=== PATIENT | male | born 1945 | race Two or more races ===

== ENCOUNTER 2016-11-19 03:56 | Inpatient (IN) | payer MEDICARE, OTHER ==
[~2016-11-19] VITALS: Ht 152.4 cm; Wt 76.2 kg
[2016-11-19 04:31] VITALS: BP 153/73
[2016-11-19 04:38] VITALS: BP 153/73
[2016-11-19] MEDS ORDERED: DEXTROSE 50%-WATER 50 ML DISP.SYRIN IV PRN (05:00)
[2016-11-19] MEDS ORDERED: ACETAMINOPHEN 325 MG TABLET PO PRN (05:00)
[2016-11-19] MEDS ORDERED: ONDANSETRON HCL/PF 4 MG/2 ML VIAL IVP PRN (05:00)
[2016-11-19] MEDS ORDERED: HYDROCODONE/APAP 5/325MG 1 EACH TABLET PO PRN (05:00)
[2016-11-19] MEDS ORDERED: Z GUARD REMEDY 2 OZ OINT TP PRN (05:00)
[2016-11-19] MEDS ORDERED: MAGNESIUM HYDROXIDE 30 ML UDC PO PRN (05:00)
[2016-11-19] MEDS ORDERED: ZOLPIDEM TARTRATE 5 MG TABLET PO PRN (05:00)
[2016-11-19] MEDS ORDERED: *INSULIN REGULAR(HUMULIN R)HUM 100 UNIT/ML VIAL SQ PRN (05:00)
[2016-11-19] MEDS ORDERED: MAG HYDROX/AL HYDROX/SIMETH 30 ML UDC PO PRN (05:00)
[2016-11-19] MEDS: BLOOD SUGAR DIAGNOSTIC 1 EACH STRIP VI SCH ×4 (06:07→21:32)
[2016-11-19] MEDS: INSULIN REGULAR, HUMAN 100 UNIT/ML 3 ML VIAL SQ PRN ×3 (06:12→18:32)
[2016-11-19 08:00] VITALS: BP 136/71
[2016-11-19] MEDS: PANTOPRAZOLE 40 MG TABLET.DR PO SCH (08:58)
[2016-11-19 09:02] LABS: BASOPHILS % (AUTO) 0.2 % (0.0-2.0); DIFF TOTAL % 100 %; EOSINOPHILS % (AUTO) 0.5 % (0.0-6.0); HEMATOCRIT 43 % (39-51); HEMOGLOBIN 14.6 g/dL (13.5-17.5); LYMPHOCYTES # (AUTO) 2.6 /CMM (0.8-4.8); LYMPHOCYTES % (AUTO) 30.5 % (20.0-44.0); MEAN CORPUSCULAR HEMOGLOBIN 29 PG (26.0-33.0); MEAN CORPUSCULAR HGB CONC 34 g/dl (31.0-36.0); MEAN CORPUSCULAR VOLUME 86 fL (80-96); MONOCYTES # (AUTO) 0.6 /CMM (0.1-1.30); MONOCYTES % (AUTO) 6.8 % (2.0-12.0); NEUTROPHILS # (AUTO) 5.4 /CMM (1.8-8.9); PLATELET COUNT (AUTO) 298 /CMM (150-450); RED BLOOD CELL COUNT(AUTO) 5.05 MIL/uL (4.5-6.0); WHITE BLOOD COUNT (AUTO) 8.7 K/uL (4.3-11.0)
[2016-11-19 09:20] LABS: ALBUMIN 3.6 g/dL (3.4-5.0); BILIRUBIN,TOTAL 0.4 mg/dL (0.2-1.0); CALCIUM, SERUM 8.7 mg/dL (8.5-10.1); CREATININE 0.9 mg/dL (0.6-1.3); PHOSPHORUS 2.8 mg/dL (2.5-4.9); POTASSIUM 4.2 mmol/L (3.5-5.1); TOTAL PROTEIN, SERUM 7.3 g/dL (6.4-8.2)
[2016-11-19] MEDS: ASPIRIN EC 81 MG TABLET.DR PO SCH (12:29)
[2016-11-19 16:00] VITALS: BP 137/78
[2016-11-19 20:00] VITALS: BP 129/67
[2016-11-19] MEDS ORDERED: ATORVASTATIN 10 MG TABLET PO SCH (22:00)
[2016-11-20] MEDS: BLOOD SUGAR DIAGNOSTIC 1 EACH STRIP VI SCH ×3 (05:48→16:43)
[2016-11-20] MEDS: INSULIN REGULAR, HUMAN 100 UNIT/ML 3 ML VIAL SQ PRN ×3 (06:31→16:43)
[2016-11-20] MEDS: PANTOPRAZOLE 40 MG TABLET.DR PO SCH (07:17)
[2016-11-20 08:00] VITALS: BP 121/77
[2016-11-20] MEDS: ASPIRIN EC 81 MG TABLET.DR PO SCH (08:18)
[2016-11-20] MEDS ORDERED: ASPI-991 PO (15:17)
[2016-11-20] MEDS ORDERED: INSU100I14 SQ (15:17)
[2016-11-20] MEDS ORDERED: ATOR10TA PO (15:17)
[2016-11-20] MEDS ORDERED: INSU100I19 SQ (15:17)
[2016-11-20] MEDS ORDERED: METF850T2 PO (15:17)
[2016-11-20 16:00] VITALS: BP 138/79
[2016-11-20] MEDS ORDERED: GADOVERSETAMIDE 2.5 MMOL/5 ML VIAL IJ ONE (18:29)
[2016-11-20] MEDS ORDERED: GADOVERSETAMIDE 5 MMOL/10 ML VIAL IJ ONE (18:29)
== END 2016-11-20 18:30 | disposition home or self-care (01) | DRG 123 ==
LOC: MED 03:56
PROVIDERS: ADMIT Family Medicine; ATTEND Family Medicine
DX: H49.02 Third [oculomotor] nerve palsy, left eye (principal); H02.402 Unspecified ptosis of left eyelid; E11.65 Type 2 diabetes mellitus with hyperglycemia; I10 Essential (primary) hypertension
CPT/HCPCS: 36415; 70544-TC; 70553-TC; 80053-TC; 82962-TC; 83735-TC; 84100-TC; 85025-TC; 87081-TC; A9579; J1815